=== PATIENT | female | born 1935 | race Hispanic/Latino ===

== ENCOUNTER 2016-10-18 21:32 | Emergency (ER) | payer MEDICARE ==
[2016-10-18] MEDS ORDERED: CATAPRES PO ONE (22:28)
[2016-10-18 23:00] LABS: Bacteria,Urine 1+ /HPF (Negative); Bilirubin,Urine NEG (Negative); Blood,Urine SM (Negative); Ketones,Urine NEG (Negative); Leukocyte Esterase,Urine SM (Negative); Nitrite,Urine NEG (Negative); Protein,Urine <15 mg/dL mg/dL (Negative)
[2016-10-18 23:30] LABS: Basophils % (Auto) 0.6 % (0.0-1.8); Eosinophils % (Auto) 3.3 % (0.0-4.3); Hematocrit 40.4 % (30.3-42.9); Hemoglobin 13.4 gm/dl (10.1-14.3); Mean Corpuscular HGB Conc 33 % (30-34); Mean Corpuscular Hemoglobin 30 pg (28-32); Mean Corpuscular Volume 90 fl (79-97); Platelet Count 135 K/mm3 (140-440); Red Blood Count 4.49 M/mm3 (3.65-5.03); Red Cell Distribution Width 15.7 % (13.2-15.2); White Blood Count 4.9 K/mm3 (4.5-11.0)
[2016-10-18 23:40] LABS: INR 1.14 (0.87-1.13)
[2016-10-18 23:41] LABS: Partial Thromboplastin Time 30.3 Sec. (24.2-36.6)
[2016-10-19] MEDS ORDERED: MACROBID PO ONE (00:02)
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
[2016-10-19 00:21] LABS: Anion Gap 14 mmol/L; BUN/Creatinine Ratio 28.33; Blood Urea Nitrogen 17 mg/dL (7-17); Calcium 8.7 mg/dL (8.4-10.2); Carbon Dioxide 29 mmol/L (22-30); Chloride 99.6 mmol/L (98-107); Creatine Kinase 36 units/L (30-135); Glucose 97 mg/dL (65-100); Potassium 3.8 mmol/L (3.6-5.0); Sodium 139 mmol/L (137-145)
[2016-10-19 09:56] VITALS: BP 151/73
== END 2016-10-19 09:54 | disposition home or self-care (01) ==
LOC: ED 21:32
DX: I10 Essential (primary) hypertension (principal); R82.99 Other abnormal findings in urine; I48.91 Unspecified atrial fibrillation; I50.9 Heart failure, unspecified; E78.5 Hyperlipidemia, unspecified
CPT/HCPCS: 36415; 80048; 81001; 82550; 82553; 84439; 84443; 84484; 85025; 85610; 85730; 93005; 93010